=== PATIENT | male | born 1975 | race Two or more races ===

== ENCOUNTER 2020-05-04 19:13 | Emergency (ER) | payer MEDICARE, MEDICAID ==
[~2020-05-04] VITALS: Ht 167.6 cm; Wt 86.2 kg
[2020-05-04 20:29] VITALS: BP 182/100
== END 2020-05-05 02:41 | disposition home or self-care (01) ==
LOC: ER 19:14
DX: U07.1 COVID-19 (principal)
CPT/HCPCS: 71045; 87635